=== PATIENT | male | born 2000 | race Caucasian/White ===

== ENCOUNTER 2023-09-09 13:39 | Emergency (ER) | payer OTHER, MEDICAID, SELFPAY ==
--- NOTE | ~2023-09-09 | XR_ITS ---
EXAMINATION: XR HAND, RIGHT CLINICAL INFORMATION: Right third finger pain COMPARISON: None available. TECHNIQUE: PA, lateral, and oblique views of the right hand. FINDINGS: No evidence for an acute fracture. There appears to be evidence of the sequela of an old fifth metacarpal fracture. No radiopaque foreign body. Joint spaces preserved. XR/XR hand RT min 3V IMPRESSION: No evidence for an acute third digit fracture.
[2023-09-09 13:56] VITALS: BP 123/79; PULSE 64; RESP 16; TEMP 36.6; O2SAT 100; BMI 21.2
--- NOTE | 2023-09-09 13:56 | ED_ITS ---
HPI - General Adult General Chief complaint: Extremity Problem Stated complaint: finger inj Time Seen by Provider: 09/09/23 14:08 Source: patient and family Mode of arrival: ambulatory Limitations: no limitations History of Present Illness ED Provider: VALENTINA Benitez HPI narrative: 22 yo m presents w/ right middle finger pain X 1 week sp jamming his fingger in car door. Pain worse w/ movement better at rest. Patient denies numbness, tingling, fevers, chills or previous injuries to this finger. Related Data Previous Rx's ?Medication ?Instructions ?Recorded ketorolac 10 mg tablet 10 mg PO TID PRN pain 5 days #15 09/09/23 tabs Allergies Allergy/AdvReac Type Severity Reaction Status Date / Time No Known Allergies Allergy Unverified 09/09/23 13:57 [No Known Allergies*] Review of Systems Review of Systems: Yes all other systems are reviewed and are negative [facility] Past Medical History Attestation statement: The following information was validated with the patient. Source: old records reviewed and nursing notes reviewed Social History Social History Advance Directives: No Advance Directives Information Provided: No Physical Exam ED Vital Signs: Vital Signs - 24 hr 09/09/23 13:56 09/09/23 15:04 Temperature 97.8 F 97.8 F Pulse Rate 64 64 Respiratory Rate 16 16 Blood Pressure 123/79 123/79 Pulse Oximetry 100 100 Oxygen Delivery Method Room Air Room Air BMI result Body Mass Index 21.2 vss Head: Normocephalic, atraumatic, no step-offs or deformities Neck: Normal inspection.? Neck supple.? CVS: Pulses normal.? Respiratory: No respiratory distress.? Abdomen: Soft and nontender.? Skin: ? Normal skin color. Extremities: 5/5 strength to bilateral upper and lower extremities Painful rom to right middle finger. 2+ radial and brachial pulses b/l. Cap refil < 2 seconds b/l. Normal sensation disally. Neuro: Oriented X 3.? No motor deficit.? No sensory deficit. Course Course Course Narrative: This is an RME done by VALENTINA Benitez: Additional HPI, ROS, PE not included below will be deferred to primary provider. 22 yo m presents w/ right middle finger pain X 1 week sp jamming his fingger in car door. Pain worse w/ movement better at rest. Patient denies numbness, tingling, fevers, chills or previous injuries to this finger. Appearance: Alert.? Oriented X3.? No acute cardiopulmonary distress distress.? Head: Normocephalic, atraumatic, no step-offs or deformities Neck: Normal inspection.? Neck supple.? CVS: Pulses normal.? Respiratory: No respiratory distress.? Abdomen: Soft and nontender.? Skin: ? Normal skin color. Extremities: 5/5 strength to bilateral upper and lower extremities Painful rom to right middle finger. 2+ radial and brachial pulses b/l. Cap refil < 2 seconds b/l. Normal sensation disally. Neuro: Oriented X 3.? No motor deficit.? No sensory deficit. Reevaluation(s) Reevaluation #1: XR/XR hand RT min 3V IMPRESSION: No evidence for an acute third digit fracture. No fx noted. plan dc home Time: 15:15 Medications Administered Discontinued Medications Generic Name Dose Route Start Last Admin Trade Name Freq PRN Reason Stop Dose Admin Ketorolac Tromethamine 30 mg 09/09/23 14:47 09/09/23 15:01 Ketorolac Tromethamine 30 Mg/Ml Vial IM 09/09/23 14:48 30 mg ONCE ONE Administration Medical Decision Making Medical Decision Making MDM Narrative: 1400 22 year old male presents w/ right middle finger pain X 1 week s/p jamming finger in car door PE - Painful rom to right middle finger. 2+ radial and brachial pulses b/l. Cap refil < 2 seconds b/l. Normal sensation distally. Hx and pe concerning for fracture of finger vs sprain vs strain vs dislocation vs contusion. No signs of NV compromise or threat to limb Plan imaging Differential Diagnosis Differential Diagnoses: The differential diagnosis associated with the presentation includes Hx and pe concerning for fracture of finger vs sprain vs strain vs dislocation vs contusion. No signs of NV compromise or threat to limb Independent Interpretation I performed an independent interpretation of an: Plain X-Ray Radiology Impression Discussion of test interpretation with radiology: I have reviewed the radiologist's reading. Prescription Management I considered prescription management with: Pain Medication Critical Care Time Critical Care Time Critical Care Time: No Discharge Plan Discharge Clinical Impression: Pain of right middle finger Patient Disposition: Home, Self-Care Instructions: Arthralgia (ED) Additional Instructions: Take your medications as prescribed. If you were prescribed antibiotics today, it is important that you take your medication to their entirety, do not skip any doses, do not finish them early. Follow-up with your primary care provider this week. Return to the emergency department with new or worsening symptoms. In case of emergency call 911 take your splint off at night. Follow up with the orthopedic team Toradol has been sent to your pharmacy, you tolerated this well in the department. Please take this as prescribed do not take this with ibuprofen, or other NSAIDs, do not mix this with alcohol. Side effects of this medication including increased risk for bleeding and possible kidney injury. Prescriptions: New ketorolac 10 mg tablet 10 mg PO TID PRN (Reason: pain) 5 Days Qty: 15 0RF Referrals: [facility] [place] [Provider Group] - 2 days Stand Alone Forms: Work/School Release Interventions: ED Discharge Assessment Last Done: 09/09/23 15:04 Discharge Date/Time: 09/09/23 15:05 Print Language: Namibian
[2023-09-09] MEDS: Ketorolac Tromethamine 30 MG/ML VIAL IM (15:01)
[2023-09-09 15:04] VITALS: BP 123/79; PULSE 64; RESP 16; TEMP 36.6; O2SAT 100
== END 2023-09-09 15:05 | disposition home or self-care (01) ==
PROVIDERS: Emergency Provider Emergency Medicine; PCP Pediatrics
DX: M79.644 Pain in right finger(s) (principal)
CPT/HCPCS: 73130; 96372; 99283; 99284; J1885

== ENCOUNTER 2023-09-11 15:37 | Emergency (ER) | payer OTHER, MEDICAID, SELFPAY ==
[2023-09-11 16:04] VITALS: BP 128/74; PULSE 67; RESP 18; TEMP 36.4; O2SAT 100; BMI 20.4
--- NOTE | 2023-09-11 16:18 | ED_ITS ---
HPI - General Adult General Chief complaint: General Medical Stated complaint: Finger pain/?Med reaction Time Seen by Provider: 09/11/23 16:10 Source: patient Mode of arrival: ambulatory Limitations: no limitations History of Present Illness ED Provider: Zulema GUSMAN HPI narrative: 22 yo m presents w/ right middle finger pain X 1 week sp jamming his fingger in car door was seen two days ago but since then developed pain, whiteness and swelling to region. Pain worse w/ movement better at rest. Patient denies numbness, tingling, fevers, chill Related Data Previous Rx's ?Medication ?Instructions ?Recorded ketorolac 10 mg tablet 10 mg PO TID PRN pain 5 days #15 09/09/23 tabs cephalexin 500 mg tablet 500 mg PO Q6H 10 days #40 tabs 09/11/23 doxycycline hyclate 100 mg capsule 100 mg PO BID 10 days #20 caps 09/11/23 morphine 15 mg immediate release 15 mg PO Q6H PRN pain 5 days #10 09/11/23 tablet tabs Allergies Allergy/AdvReac Type Severity Reaction Status Date / Time No Known Allergies Allergy Verified 09/11/23 16:08 [No Known Allergies*] Review of Systems Review of Systems: Yes all other systems are reviewed and are negative PMF[facility] Past Medical History Attestation statement: The following information was validated with the patient. Source: old records reviewed and nursing notes reviewed Social History Social History Advance Directives: No Advance Directives Information Provided: Yes Do you have a plan to hurt others: No Plan Physical Exam ED Vital Signs: Vital Signs - 24 hr 09/11/23 16:04 09/11/23 16:25 Temperature 97.5 F 97.5 F Pulse Rate 67 67 Respiratory Rate 18 18 Blood Pressure 128/74 128/74 Pulse Oximetry 100 100 Oxygen Delivery Method Room Air Room Air BMI result Body Mass Index 20.4 vss Appearance: Alert.? Oriented X3.? No acute cardiopulmonary distress distress.? Head: Normocephalic, atraumatic, no step-offs or deformities CVS: Pulses normal.? Respiratory: No respiratory distress.? Abdomen: Soft and nontender.? Skin: ? Normal skin color. Extremities: 5/5 strength to bilateral upper and lower extremities Painful rom to right middle finger. 2+ radial and brachial pulses b/l. Cap refil < 2 seconds b/l. Normal sensation distally. + paronychia now to the right middle finger Back: No midline tenderness, no C-spine tenderness, full range of motion, No CVA tenderness bilaterally Neuro: Oriented X 3.? No motor deficit.? No sensory deficit. Course Reevaluation(s) Reevaluation #1: Incision and drainage done with moderate amount of purulence expressed. Patient tolerated procedure well. Tetanus shot given. Oxycodone for pain. Patient to be discharged with morphine went over narcotic safe handling and proper use. Educated patient on diagnosis and treatment plan, answered all question, patient verbalizes understanding. At this time patient will be discharged home, advised to return with new or worsening symptoms. Educated on worrisome signs and symptoms and when to return. At this time I feel comfortable discharge home. Time: 16:36 Medications Administered Discontinued Medications Generic Name Dose Route Start Last Admin Trade Name Freq PRN Reason Stop Dose Admin Diphtheria/Tetanus/Acell Pertussis 0.5 ml 09/11/23 16:26 09/11/23 16:33 Diphth,Pertus(Acell),Tet Adult 0.5 Ml Syringe IM 09/11/23 16:27 0.5 ml .ONCE ONE Administration Oxycodone HCl 5 mg 09/11/23 16:27 09/11/23 16:33 Oxycodone Hcl Immed Release 5 Mg Tablet PO 09/11/23 16:28 5 mg ONCE ONE Administration Medical Decision Making Medical Decision Making [facility] Narrative: 22 year old male presents w/ right middle finger pain X 1 week s/p jamming finger in car door PE - Painful rom to right middle finger. 2+ radial and brachial pulses b/l. Cap refil < 2 seconds b/l. Normal sensation distally. + paronychia now to the right middle finger Hx and pe concerning for paronychia with cellulitis. Unlikely neurovascular compromise, threat to limb. Plan FNA / aspiration Differential Diagnosis Differential Diagnoses: The differential diagnosis associated with the pre sentation includes paronychia with cellulitis. Unlikely neurovascular compromise, threat to limb. Admission/Observation Consideration of admission/observation: Escalation of care including admission/observation considered no indication Discharge Plan Discharge Clinical Impression: Finger pain, Cellulitis, Paronychia of finger Patient Disposition: Home, Self-Care Additional Instructions: Take your medications as prescribed. If you were prescribed antibiotics today, it is important that you take your medication to their entirety, do not skip any doses, do not finish them early. Follow-up with your primary care provider this week. Return to the emergency department with new or worsening symptoms. Such as fevers, chills, chest pain, shortness of breath, nausea, vomiting, dizziness, headache, vision changes, lethargy In case of emergency call 911 A narcotic has been sent to your pharmacy please take this as prescribed. Do not take more than the prescribed dose. Narcotic medications can cause ad diction. Please do not mix them with alcohol. Do not take them while driving or operating machinery. Do not take them with any other narcotics. Do not share them with friends or family. They can cause constipation. Take them only for severe pain. Prescriptions: New doxycycline hyclate 100 mg capsule 100 mg PO BID 10 Days Qty: 20 0RF cephalexin 500 mg tablet 500 mg PO Q6H 10 Days Qty: 40 0RF morphine 15 mg tablet 15 mg PO Q6H PRN (Reason: pain) 5 Days Qty: 10 0RF Rx Instructions: Partial Fill upon patient request. No Action ketorolac 10 mg tablet 10 mg PO TID PRN (Reason: pain) 5 Days Qty: 15 0RF Referrals: Physician,None [Primary Care Provider] - 2 days Stand Alone Forms: Work/School Release Interventions: ED Discharge Assessment Last Done: 09/11/23 16:25 Print Language: Slovak
[2023-09-11 16:25] VITALS: BP 128/74; PULSE 67; RESP 18; TEMP 36.4; O2SAT 100
[2023-09-11] MEDS: oxyCODONE HCl Immed Release 5 MG TABLET PO (16:33)
[2023-09-11] MEDS: Diphth,Pertus(ACell),Tet Adult 0.5 ML SYRINGE IM (16:33)
== END 2023-09-11 16:38 | disposition home or self-care (01) ==
PROVIDERS: Emergency Provider Emergency Medicine
DX: L03.011 Cellulitis of right finger (principal); M79.644 Pain in right finger(s); S69.91XD Unspecified injury of right wrist, hand and finger(s), subsequent encounter; W23.0XXD Caught, crushed, jammed, or pinched between moving objects, subsequent encounter; Z23 Encounter for immunization
CPT/HCPCS: 10060; 90471; 90715; 99283; 99284

== ENCOUNTER 2024-04-11 17:14 | Emergency (ER) | payer OTHER, MEDICAID, SELFPAY ==
--- NOTE | ~2024-04-11 | XR_ITS ---
CLINICAL HISTORY: 4th digit injury, pain 3 view right hand Comparison: X-rays of the right hand from 09/09/2023 Findings: Distal 5th metacarpal fracture is old healed. No acute fracture. No dislocation. Mild soft tissue swelling and prominence is noted including 4th and 5th metacarpophalangeal regions. No radiopaque retained foreign body. IMPRESSION: 1. No acute fracture or dislocation. 2. Old healed 5th metacarpal fracture. This document has been electronically signed by: Ten King MD on 04/11/2024 18:56:39
[2024-04-11 17:57] VITALS: BP 99/64; PULSE 99; RESP 16; TEMP 36.7; O2SAT 99; BMI 20.7
--- NOTE | 2024-04-11 17:57 | ED_ITS ---
HPI - General Adult General Chief complaint: Extremity Injury, Upper Stated complaint: right fingers bent playing basketball Time Seen by Provider: 04/11/24 20:37 Source: patient Mode of arrival: ambulatory Limitations: no limitations History of Present Illness ED Provider: Yashira Edwards PA-C HPI narrative: Patient is a 23 year old assigned female at with no reported medical history presenting to the emergency department today with right hand pain. Patient states that 4 months ago he was playing basketball when his right 4th and 5th fingers were bent backwards and he has been having intermittent pain there ever since. Patient denies any dizziness, lightheadedness, abdominal pain, nausea, vomiting, fever, chills, blurry vision, double vision, loss of vision, chest pain, difficulty breathing, shortness of breath, back pain, night sweats, pain with urination, increased urinary frequency, increased urinary urgency, blood in his urine or stool, syncope or a near syncopal episode, bowel incontinence, bladder incontinence, or any other complaints at this time. Onset (ago): month(s) (4) Location: right and upper extremity Relieving factors: none Exacerbating factors: movement Associated symptoms: denies other symptoms Treatments prior to arrival: none Related Data Previous Rx's ?Medication ?Instructions ?Recorded ketorolac 10 mg tablet 10 mg PO TID PRN pain 5 days #15 09/09/23 tabs cephalexin 500 mg tablet 500 mg PO Q6H 10 days #40 tabs 09/11/23 doxycycline hyclate 100 mg capsule 100 mg PO BID 10 days #20 caps 09/11/23 morphine 15 mg immediate release 15 mg PO Q6H PRN pain 5 days #10 09/11/23 tablet tabs Allergies Allergy/AdvReac Type Severity Reaction Status Date / Time No Known Allergies Allergy Verified 04/11/24 17:58 [No Known Allergies*] Review of Systems Constitutional: Constitutional: Reports no additional constitutional complaints, Denies chills, Denies fever(s) and Denies night sweats Eyes: Eyes: Reports no additional eye complaints, Denies blurry vision, Denies change in vision, Denies diplopia, Denies eye discharge, Denies loss of vision and Denies eye pain ENT: Denies dizziness Cardiovascular: Cardiovascular: Reports no additional cardiovascular complaints, Denies chest pain, Denies lightheadedness, Denies Loss of Consciousness and Denies dyspnea Respiratory: Respiratory: Reports no additional respiratory complaints and Denies dyspnea Gastrointestinal: Gastrointestinal: Reports no additional gastrointestinal complaints, Denies abdominal pain, Denies melena, Denies hematochezia, Denies change in bowel habits and Denies change in stool character Genitourinary: Genitourinary: Reports no additional male genitourinary complaints, Denies hematuria, Denies oliguria, Denies difficulty urinating, Denies dysuria, Denies urinary frequency, Denies urinary hesitancy, Denies urinary incontinence and Denies urinary urgency Musculoskeletal: Musculoskeletal: Reports no additional musculoskeletal complaints, Denies numbness and Denies tingling Comments: right 4th and 5th finger pain Neurologic: Denies dizziness, Denies loss of vision, Denies numbness and Denies tingling Psychiatric: Psychiatric: Reports no additional psychiatric complaints Endocrine: Endocrine: Reports no additional endocrine complaints Hematologic/Lymphatic: Hematologic/Lymphatic: Reports no additional hematologic/lymphatic complaints Allergic/Immunologic: Allergic/Immunologic: Reports no additional allergic/immunologic complaints PMFSH Past Medical History Attestation statement: The following information was validated with the patient. Source: old records reviewed and nursing notes reviewed Social History Social History Advance Directives: No Advance Directives Information Provided: No Do you have a plan to hurt others: No Plan Physical Exam ED Vital Signs: Vital Signs - 24 hr 04/11/24 17:57 04/11/24 20:39 04/11/24 20:44 Temperature 98.1 F 98.0 F 98.0 F Pulse Rate 99 78 78 Respiratory Rate 16 16 16 Blood Pressure 99/64 105/69 105/69 Pulse Oximetry 99 97 97 Oxygen Delivery Method Room Air Room Air Room Air BMI result Body Mass Index 20.7 Const General: cooperative, no acute distress, alert and awake Nutritional Appearance: well nourished Orientation/consciousness: patient oriented x3 Limitations: no limitations HENMT Head: Yes normal to inspection and Yes atraumatic Ears: hearing grossly normal bilaterally and external ears normal General nose exam: Normal external nose present, no nasal discharge noted and no epistaxis Face and sinus: Yes normal facial exam, No abrasion and No laceration Mouth: Normal oral and palatal mucosa present, no drooling and no muffled voice Eyes General: appearance normal, both eyes and all related structures Periorbital: periorbital findings normal Eyelids: Yes eyelids normal Conjunctivae: conjunctivae normal Pupils: Equal, round and reactive pupils present EOM: EOMs intact bilaterally Neck Neck: Yes normal visual inspection, Yes full ROM and Yes no lymphadenopathy Chest Chest palpation & inspection: normal inspection of the chest Resp Effort & Inspection: normal respiratory effort and able to speak in complete sentences GI Inspection: Yes normal to inspection Neuro General: patient oriented x3 and moves all extremities Cranial nerves: Yes Equal, round and reactive pupils present Cognition (Neuro): normal cognition Extrem General: Yes normal to inspection, Yes full ROM and Yes capillary refill normal Psych Appearance: grossly normal Mental Status: mental status grossly normal Affect: normal affect Attitude: cooperative Thought process: Normal thought process present Thought content: Normal thought content present Insight: Good insight present (Psych) Course Course Course Narrative: RME performed by Yashira Edwards PA-C. Patient is a 23 year old assigned male at presenting to the emergency department with right 4th finger pain. Patient states 4 months ago he was playing basketball, got a rebound, and bent his right 4th finger back but it continues to hurt when he moves it. Detailed physical exam and review of systems are deferred to the sort line worker. Imaging ordered. Patient placed back in the waiting room pending room availability and results. Medical Decision Making Medical Decision Making MDM Narrative: Patient is a 23 year old assigned male at with no reported medical history presenting to the emergency department today with right hand pain for 4 months. Patient's physical exam was unremarkable. Patient's right hand x-ray showed no acute process but did show an old, healed, 5th metacarpal fracture which may be the root of the patients pain. I explained my physical exam findings as well as all test results to the patient. I answered all questions asked by the patient. I stressed the importance of the patient taking his medication as directed (either prescribed or as the over the counter packaging recommends). I stressed the importance of the patient following up with his primary care provider. I stressed the importance of the patient returning to the emergency department immediately if his symptoms were to worsen or if he were to develop any dizziness, shortness of breath, difficulty breathing, chest pain, blurry vision, loss of vision, nausea, vomiting, abdominal pain, fever, chills, back pain, or any other complaints. Patient verbalized agreement and understanding with this treatment plan and discharge. Differential Diagnosis Differential Diagnoses: The differential diagnosis associated with the presentation includes Right hand pain Right 4th finger injury Right 5th finger injury Right 5gh metacarpal injury Admission/Observation Consideration of admission/observation: Escalation of care including admission/observation considered Patient would have been admitted to the hospital had his work up had any findings where hospital admission was appropriate and his clinical presentation warranted hospital admission. Independent Interpretation I performed an independent interpretation of an: Plain X-Ray Interpretation: My interpretation is in agreement with the radiologist's impression of this imaging study. CLINICAL HISTORY: 4th digit injury, pain 3 view right hand Comparison: X-rays of the right hand from 09/09/2023 Findings: Distal 5th metacarpal fracture is old healed. No acute fracture. No dislocation. Mild soft tissue swelling and prominence is noted including 4th and 5th metacarpophalangeal regions. No radiopaque retained foreign body. IMPRESSION: 1. No acute fracture or dislocation. 2. Old healed 5th metacarpal fracture. This document has been electronically signed by: Ten King MD on 04/11/2024 18:56:39 Dictated By: Ten King MD Signed By: Electronically signed by Ten King MD 04/11/24 9160 Radiology Impression Discussion of test interpretation with radiology: I have reviewed the radiologist's reading. Discharge Plan Discharge Clinical Impression: Hand pain Patient Disposition: Home, Self-Care Additional Instructions: Your hand x-ray showed an old, already healed, right 5th metacarpal fracture. Follow up with your primary care provider. Return to the emergency department immediately if your symptoms worsen or if you develop any dizziness, shortness of breath, difficulty breathing, chest pain, blurry vision, loss of vision, nausea, vomiting, abdominal pain, fever, chills, back pain, or any other complaints. Prescriptions: No Action ketorolac 10 mg tablet 10 mg PO TID PRN (Reason: pain) 5 Days Qty: 15 0RF doxycycline hyclate 100 mg capsule 100 mg PO BID 10 Days Qty: 20 0RF cephalexin 500 mg tablet 500 mg PO Q6H 10 Days Qty: 40 0RF morphine 15 mg tablet 15 mg PO Q6H PRN (Reason: pain) 5 Days Qty: 10 0RF Rx Instructions: Partial Fill upon patient request. Referrals: [facility] [place] Family [place] [Provider Group] (Call to establish and follow up with a primary care provider. IF you already have a primary care provider, please follow up with them.) [facility] [place] Primary Care, [facility] [Provider Group] (Call to establish and follow up with a primary care provider. IF you already have a primary care provider, please follow up with them.) [facility] [place] [facility] [Provider Group] (Call to establish and follow up with a primary care provider. IF you already have a primary care provider, please follow up with them.) Interventions: ED Discharge Assessment Last Done: 04/11/24 20:44 Discharge Date/Time: 04/11/24 20:48 Print Language: Tajik
[2024-04-11 20:39] VITALS: BP 105/69; PULSE 78; RESP 16; TEMP 36.7; O2SAT 97
[2024-04-11 20:44] VITALS: BP 105/69; PULSE 78; RESP 16; TEMP 36.7; O2SAT 97
== END 2024-04-11 20:48 | disposition home or self-care (01) ==
LOC: HO.ED 20:45
PROVIDERS: Emergency Provider Emergency Medicine Emergency Medical Services
DX: M79.641 Pain in right hand (principal)
CPT/HCPCS: 73130; 99282; 99283

== ENCOUNTER → 2024-04-11 17:59 | Outpatient (BNV) | payer OTHER, MEDICAID, SELFPAY | PROVIDERS: Visit Provider Radiology Neuroradiology | DX: S63.614A Unspecified sprain of right ring finger, initial encounter (principal) | CPT/HCPCS: 73130 ==

== ENCOUNTER 2024-07-25 19:35 | Emergency (ER) | payer OTHER, SELFPAY ==
--- NOTE | ~2024-07-25 | XR_ITS ---
CLINICAL HISTORY: pain, injury 3 view right ankle Comparison: None Findings: Bones intact. No dislocations. No significant loss of joint space, osteophytes, or erosions. No ankle effusion. Soft tissue edema of the ankle. No radiopaque foreign body. IMPRESSION: No acute fracture. This document has been electronically signed by: Jeff Segundo MD on 07/25/2024 21:03:00
--- NOTE | ~2024-07-25 | XR_ITS ---
CLINICAL HISTORY: pain, injury 3 view right foot Comparison: None Findings: Bones intact. No dislocations. No significant arthritic change or erosions. No ankle effusion. No radiopaque foreign body. IMPRESSION: 1. No acute findings. This document has been electronically signed by: Jfef Segundo MD on 07/25/2024 21:05:01
[2024-07-25 20:04] VITALS: BP 108/69; PULSE 79; RESP 20; TEMP 36.4; O2SAT 99; BMI 20.7
--- NOTE | 2024-07-25 20:07 | ED_ITS ---
HPI - General Adult General Chief complaint: Extremity Problem Stated complaint: R ankle pain Time Seen by Provider: 07/25/24 21:14 Source: patient Mode of arrival: wheelchair Limitations: no limitations History of Present Illness ED Provider: Yashira Edwards PA-C HPI narrative: Patient is a 23 year old assigned male at with a history of ankle sprains presenting to the emergency department today with right ankle pain. Patient states that he was playing basketball when he rolled his right ankle. Patient denies any dizziness, lightheadedness, abdominal pain, nausea, vomiting, fever, chills, blurry vision, double vision, loss of vision, chest pain, difficulty breathing, shortness of breath, back pain, night sweats, pain with urination, increased urinary frequency, increased urinary urgency, blood in his urine or stool, syncope or a near syncopal episode, bowel incontinence, bladder incontinence, or any other complaints at this time. Location: right and lower extremity Relieving factors: immobilization Exacerbating factors: movement Associated symptoms: denies other symptoms Treatments prior to arrival: none Related Data Previous Rx's ?Medication ?Instructions ?Recorded ketorolac 10 mg tablet 10 mg PO TID PRN pain 5 days #15 09/09/23 tabs cephalexin 500 mg tablet 500 mg PO Q6H 10 days #40 tabs 09/11/23 doxycycline hyclate 100 mg capsule 100 mg PO BID 10 days #20 caps 09/11/23 morphine 15 mg immediate release 15 mg PO Q6H PRN pain 5 days #10 09/11/23 tablet tabs Allergies Allergy/AdvReac Type Severity Reaction Status Date / Time No Known Allergies Allergy Verified 07/25/24 20:05 [No Known Allergies*] Review of Systems Constitutional: Constitutional: Reports no additional constitutional complaints, Denies chills, Denies fever(s) and Denies night sweats Eyes: Eyes: Reports no additional eye complaints, Denies blurry vision, Denies change in vision, Denies diplopia, Denies eye discharge, Denies loss of vision and Denies eye pain ENT: Denies dizziness Cardiovascular: Cardiovascular: Reports no additional cardiovascular complaints, Denies chest pain, Denies lightheadedness, Denies Loss of Consciousness and Denies dyspnea Respiratory: Respiratory: Reports no additional respiratory complaints and Denies dyspnea Gastrointestinal: Gastrointestinal: Reports no additional gastrointestinal complaints, Denies abdominal pain, Denies melena, Denies hematochezia, Denies change in bowel habits and Denies change in stool character Genitourinary: Genitourinary: Reports no additional male genitourinary complaints, Denies hematuria, Denies oliguria, Denies difficulty urinating, Denies dysuria, Denies urinary frequency, Denies urinary hesitancy, Denies urinary incontinence and Denies urinary urgency Musculoskeletal: Musculoskeletal: Reports no additional musculoskeletal complaints, Denies numbness and Denies tingling Comments: right ankle pain Neurologic: Denies dizziness, Denies loss of vision, Denies numbness and Denies tingling Psychiatric: Psychiatric: Reports no additional psychiatric complaints Endocrine: Endocrine: Reports no additional endocrine complaints Hematologic/Lymphatic: Hematologic/Lymphatic: Reports no additional hematologic/lymphatic complaints Allergic/Immunologic: Allergic/Immunologic: Reports no additional allergic/immunologic complaints PMFSH Past Medical History Attestation statement: The following information was validated with the patient. Source: old records reviewed and nursing notes reviewed Physical Exam ED Vital Signs: Vital Signs - 24 hr 07/25/24 20:04 Temperature 97.6 F Pulse Rate 79 Respiratory Rate 20 Blood Pressure 108/69 Pulse Oximetry 99 Oxygen Delivery Method Room Air BMI result Body Mass Index 20.7 Const General: cooperative, no acute distress, alert and awake Nutritional Appearance: well nourished Orientation/consciousness: patient oriented x3 HENMT Head: Yes normal to inspection and Yes atraumatic Ears: hearing grossly normal bilaterally and external ears normal General nose exam: Normal external nose present, no nasal discharge noted and no epistaxis Face and sinus: Yes normal facial exam, No abrasion and No laceration Mouth: Normal oral and palatal mucosa present, no drooling and no muffled voice Eyes General: appearance normal, both eyes and all related structures Periorbital: periorbital findings normal Eyelids: Yes eyelids normal Conjunctivae: conjunctivae normal Pupils: Equal, round and reactive pupils present EOM: EOMs intact bilaterally Neck Neck: Yes normal visual inspection, Yes full ROM and Yes no lymphadenopathy Resp Effort & Inspection: normal respiratory effort and able to speak in complete sentences Neuro General: patient oriented x3, moves all extremities and CN's II-XI intact bilaterally Cranial nerves: Yes Equal, round and reactive pupils present Cognition (Neuro): normal cognition Extrem Other: pain with right ankle ROM pain with palpation of the right ankle swelling along the lateral aspect of the right ankle General: Yes full ROM and Yes capillary refill normal Psych Appearance: grossly normal Mental Status: mental status grossly normal Affect: normal affect Attitude: cooperative Thought process: Normal thought process present Thought content: Normal thought content present Insight: Good insight present (Psych) Course Course Course Narrative: RME performed by Yashira Edwards PA-C. Patient is a 23 year old assigned male at presenting to the emergency department with right ankle pain. Patient states that he rolled his right ankle playing basketball. Detailed physical exam and review of systems are deferred to the laminate floor installer. Imaging ordered. Patient placed back in the waiting room pending room availability and results. Procedures Orthopedic Splinting/Casting Injury #1: Side: right Lower Extremity Injury Location: ankle Lower Extremity Immobilizer: boot orthosis Other Orthopedic Equipment: crutches Medical Decision Making Medical Decision Making MDM Narrative: Patient is a 23 year old assigned male at with a history of ankle sprains presenting to the emergency department today with right ankle pain. Patient's physical exam was as noted in the physical exam portion of this note. Patient's right foot and ankle x-ray showed no acute process. Patient's clinical presentation is most consistent with an ankle sprain / strain. I explained my physical exam findings as well as all test results to the patient. I answered all questions asked by the patient. Patient's right foot / ankle was placed in a walking boot, without incident. Patient's right foot / lower extremity PMS was intact prior to and after walking boot placement. Patient was given crutches with crutch instructions and was able to demonstrate proper use. I stressed the importance of the patient taking his medication as directed (either prescribed or as the over the counter packaging recommends). I stressed the importance of the patient following up with his primary care provider. I stressed the importance of the patient returning to the emergency department immediately if his symptoms were to worsen or if he were to develop any dizziness, shortness of breath, difficulty breathing, chest pain, blurry vision, loss of vision, nausea, vomiting, abdominal pain, fever, chills, back pain, or any other complaints. Patient verbalized agreement and understanding with this treatment plan and discharge. Differential Diagnosis Differential Diagnoses: The differential diagnosis associated with the presentation includes Right ankle sprain Right ankle strain Right ankle fx Admission/Observation Consideration of admission/observation: Escalation of care including admission/observation considered Patient would have been admitted to the hospital had his work up had any findings where hospital admission was appropriate and his clinical presentation warranted hospital admission. Independent Interpretation I performed an independent interpretation of an: Plain X-Ray Interpretation: My interpretation is in agreement with the radiologist's impression of these imaging studies. CLINICAL HISTORY: pain, injury 3 view right ankle Comparison: None Findings: Bones intact. No dislocations. No significant loss of joint space, osteophytes, or erosions. No ankle effusion. Soft tissue edema of the ankle. No radiopaque foreign body. IMPRESSION: No acute fracture. This document has been electronically signed by: Jeff Segundo MD on 07/25/2024 21:03:00 Dictated By: Jeff Segundo MD Signed By: Electronically signed by Jeff Segundo MD 07/25/[id number] CLINICAL HISTORY: pain, injury 3 view right foot Comparison: None Findings: Bones intact. No dislocations. No significant arthritic change or erosions. No ankle effusion. No radiopaque foreign body. IMPRESSION: 1. No acute findings. This document has been electronically signed by: Jeff Segundo MD on 07/25/2024 21:05:01 Dictated By: Jeff Segundo MD Signed By: Electronically signed by Jeff Segundo MD 07/25/242105 Radiology Impression Discussion of test interpretation with radiology: I have reviewed the radiologist's reading. Discharge Plan Discharge Clinical Impression: Ankle sprain Patient Disposition: Home, Self-Care Instructions: Ankle Sprain (DC) Additional Instructions: Follow up with your primary care provider. Return to the emergency department immediately if your symptoms worsen or if you develop any dizziness, shortness of breath, difficulty breathing, chest pain, blurry vision, loss of vision, nausea, vomiting, abdominal pain, fever, chills, back pain, or any other complaints. Hari?seguimiento?con ortiz m?dico de atenci?n primaria. Acuda inmediatamente al servicio de urgencias si maryjo s?ntomas empeoran o si presenta falta de aliento, dificultad para respirar, dolor tor?cico, mareos, aturdimiento, dolor de espalda, dolor abdominal, fiebre, escalofr?os o cualquier otro s?ntoma. Please see the information below about our Patient Portal. If you are not yet enrolled in the [facility] Patient Portal, you will receive an enrollment email invitation following your visit to any [facility] care setting. You may also self-enroll in the Patient Portal by visiting our website: [email or web address] The following information is required to access the Patient Portal: - Your [facility] Medical Record Number - Your personal home email address (must match what is in your electronic medical record, Registration staff can assist with this) - Name - Date of Capabilities of the Patient Portal: - Message some providers - View upcoming appointments - Access your health summary, medical history, and visit history - View current conditions and allergies - View procedure and lab results - View your medications, including guidelines, side effects, and precautions - Complete pre-appointment questionnaires requested by your provider - Ready summary reports of your office visits and procedures To access the Patient Portal Mobile Art, follow these directions: - Search [employer] in the Art Store or [employer] Store - Download the Art - Search for [facility] - Enter your login/password Portal del paciente Si usted no esta inscrito en el portal de pacientes de [facility], recibira constantine invitacion de inscripcion despues de ortiz visita al [facility] o al [facility] via correo electronico. Tambien puede inscribirse voluntariamente en el portal de pacientes visitando nuestra pagina web: [email or web address] La siguiente informacion sera requerida para acceder al portal: - Ortiz prema de historia medica de [facility] - Ortiz direccion de correo electronico personal - Nombre - Fecha de nacimiento Capacidades: Las siguientes capacidades estan disponibles en el portal de pacientes: - Enviar mensajes a algunos doctores - Verificar proximas citas - Acceso a ortiz historial de maico, registro medico e historial de visitas - Francie las condiciones actuales y alergias francie procedimientos y resultados del laboratorio - Francie maryjo medicamentos, incluyendo las pautas - Efectos secundarios y precauciones - Completar o llenar formularios / cuestionarios de - Citas solicitadas por ortiz doctor - Leer los resumenes de reportes medicos de maryjo visitas y procedimientos Helen acceder a la aplicacion movil: - Ayaan [facility] en la Art Store o [employer] Software Store - Descargue la aplicacion - [facility] - Ingrese ortiz nombre de usuario / Contrasena Prescriptions: No Action ketorolac 10 mg tablet 10 mg PO TID PRN (Reason: pain) 5 Days Qty: 15 0RF doxycycline hyclate 100 mg capsule 100 mg PO BID 10 Days Qty: 20 0RF cephalexin 500 mg tablet 500 mg PO Q6H 10 Days Qty: 40 0RF morphine 15 mg tablet 15 mg PO Q6H PRN (Reason: pain) 5 Days Qty: 10 0RF Rx Instructions: Partial Fill upon patient request. Referrals: [facility] Family Medicine [Provider Group] (Call to establish and follow up with your primary care provider. If you already have a primary care provider, please follow up with them. Llame para establecer y hacer un seguimiento con ortiz proveedor de atenci?n primaria. Si ya tiene un proveedor de atenci?n primaria, p?ngase en contacto con ?l.) [facility] Primary Care, [facility] [Provider Group] (Call to establish and follow up with your primary care provider. If you already have a primary care provider, please follow up with them. Llame para establecer y hacer un seguimiento con ortiz proveedor de atenci?n primaria. Si ya tiene un proveedor de atenci?n primaria, p?ngase en contacto con ?l.) [facility] Primary Care, Ja [Provider Group] (Call to establish and follow up with your primary care provider. If you already have a primary care provider, please follow up with them. Llame para establecer y hacer un seguimiento con ortiz proveedor de atenci?n primaria. Si ya tiene un proveedor de atenci?n primaria, p?ngase en contacto con ?l.) [facility] Primary Care, [facility] [Provider Group] (Call to establish and follow up with your primary care provider. If you already have a primary care provider, please follow up with them. Llame para establecer y hacer un seguimiento con ortiz proveedor de atenci?n primaria. Si ya tiene un proveedor de atenci?n primaria, p?ngase en contacto con ?l.) [facility] Primary Care, [facility] [Provider Group] (Call to establish and follow up with your primary care provider. If you already have a primary care provider, please follow up with them. Llame para establecer y hacer un seguimiento con ortiz proveedor de atenci?n primaria. Si ya tiene un proveedor de atenci?n primaria, p?ngase en contacto con ?l.) Stand Alone Forms: Work/School Release Print Language: Tajik
[2024-07-25 21:21] VITALS: BP 108/69; PULSE 79; RESP 20; TEMP 36.4; O2SAT 99
== END 2024-07-25 21:29 | disposition home or self-care (01) ==
LOC: HO.ED 21:24
PROVIDERS: Emergency Provider Emergency Medicine
DX: S93.401A Sprain of unspecified ligament of right ankle, initial encounter (principal); X50.1XXA Overexertion from prolonged static or awkward postures, initial encounter; M25.571 Pain in right ankle and joints of right foot; Y93.67 Activity, basketball; Y92.310 Basketball court as the place of occurrence of the external cause; Y99.9 Unspecified external cause status
CPT/HCPCS: 73610; 73630; 99283

== ENCOUNTER → 2024-07-25 20:07 | Outpatient (BNV) | payer OTHER, SELFPAY | PROVIDERS: Emergency Provider Emergency Medicine; Visit Provider Nuclear Medicine | DX: M25.571 Pain in right ankle and joints of right foot (principal) | CPT/HCPCS: 73610; 73630 ==

== ENCOUNTER 2024-08-08 05:36 | Emergency (ER) | payer MEDICAID, SELFPAY ==
[2024-08-08 05:40] VITALS: BP 127/77; PULSE 58; RESP 20; TEMP 36.7; O2SAT 98; BMI 20.7
--- NOTE | 2024-08-08 05:46 | ED_ITS ---
HPI - Dental/Oral General Chief complaint: Dental/Oral Stated complaint: tooth pain Time Seen by Provider: 08/08/24 05:46 Source: patient Mode of arrival: ambulatory Limitations: no limitations History of Present Illness ED Provider: HPI Narrative: Patient with dental cavities had feeling done last week in advised for left 3rd molar to be extracted comes here for increasing pain in the same molar patient has been taking tramadol without much relief Related Data Previous Rx's ?Medication ?Instructions ?Recorded ketorolac 10 mg tablet 10 mg PO TID PRN pain 5 days #15 09/09/23 tabs cephalexin 500 mg tablet 500 mg PO Q6H 10 days #40 tabs 09/11/23 doxycycline hyclate 100 mg capsule 100 mg PO BID 10 days #20 caps 09/11/23 morphine 15 mg immediate release 15 mg PO Q6H PRN pain 5 days #10 09/11/23 tablet tabs amoxicillin 875 mg-potassium 1 tab PO BID #20 tabs 08/08/24 clavulanate 125 mg tablet oxycodone 5 mg tablet 5 mg PO Q6H PRN pain #10 tabs 08/08/24 Allergies Allergy/AdvReac Type Severity Reaction Status Date / Time No Known Allergies Allergy Verified 08/08/24 05:42 [No Known Allergies*] Review of Systems 2 Review of Systems: Yes all other systems are reviewed and are negative PMFSH Social History Social History Advance Directives: No Advance Directives Information Provided: No Physical Exam 2 Vital Signs: Vital Signs: Last Vital Signs Temp 98.1 F 08/08/24 06:06 Pulse 58 08/08/24 06:06 Resp 20 08/08/24 06:06 BP 127/77 08/08/24 06:06 Pulse Ox 98 08/08/24 06:06 O2 Del Method Room Air 08/08/24 06:06 BMI result Body Mass Index 20.7 HEENT: Teeth image: 1. Broken impacted tooth with gum tenderness no abscess palpable Medications Administered Discontinued Medications Generic Name Dose Route Start Last Admin Trade Name Freq PRN Reason Stop Dose Admin Amoxicillin/Clavulanate Potassium 875 mg 08/08/24 05:55 08/08/24 06:00 Amoxicillin/Potassium Clav 875 Mg Tablet PO 08/08/24 05:56 875 mg ONCE ONE Administration Oxycodone HCl 5 mg 08/08/24 05:55 08/08/24 06:00 Oxycodone Hcl Immed Release 5 Mg Tablet PO 08/08/24 05:56 5 mg ONCE ONE Administration Medical Decision Making Medical Decision Making [facility] Narrative: Patient with impacted tooth 17. With cavity will give Augmentin and pain medication advised to follow up with dentist for extraction Discharge Plan Discharge Clinical Impression: Dental caries Patient Disposition: Home, Self-Care Instructions: Toothache (ED) Additional Instructions: Take antibiotics and pain medication as prescribed Follow up with your dentist for further management Prescriptions: New amoxicillin-pot clavulanate 875-125 mg tablet 1 tab PO BID Qty: 20 0RF oxycodone 5 mg tablet 5 mg PO Q6H PRN (Reason: pain) Qty: 10 0RF Rx Instructions: Partial Fill upon patient request. No Action ketorolac 10 mg tablet 10 mg PO TID PRN (Reason: pain) 5 Days Qty: 15 0RF doxycycline hyclate 100 mg capsule 100 mg PO BID 10 Days Qty: 20 0RF cephalexin 500 mg tablet 500 mg PO Q6H 10 Days Qty: 40 0RF morphine 15 mg tablet 15 mg PO Q6H PRN (Reason: pain) 5 Days Qty: 10 0RF Rx Instructions: Partial Fill upon patient request. Stand Alone Forms: Work/School Release Interventions: ED Discharge Assessment Last Done: 08/08/24 06:06 Discharge Date/Time: 08/08/24 06:06 Print Language: Maori
[2024-08-08 05:47] VITALS: BP 127/77; PULSE 58; RESP 20; TEMP 36.7; O2SAT 98
[2024-08-08] MEDS: oxyCODONE HCl Immed Release 5 MG TABLET PO (06:00)
[2024-08-08] MEDS: Amoxicillin/Potassium Clav 875 MG TABLET PO (06:00)
[2024-08-08 06:06] VITALS: BP 127/77; PULSE 58; RESP 20; TEMP 36.7; O2SAT 98
== END 2024-08-08 06:06 | disposition home or self-care (01) ==
PROVIDERS: Emergency Provider Internal Medicine
DX: K02.9 Dental caries, unspecified (principal)
CPT/HCPCS: 99283; 99284

== ENCOUNTER 2024-08-23 07:43 | Emergency (ER) | payer MEDICAID, SELFPAY ==
[2024-08-23 07:50] VITALS: BP 121/71; PULSE 59; RESP 14; TEMP 36.5; O2SAT 98; BMI 20.2
[2024-08-23 08:00] VITALS: BP 121/71; PULSE 59; RESP 14; TEMP 36.5; O2SAT 98
--- NOTE | 2024-08-23 08:05 | PC.NURSE ---
Patient A&O x 3. Takes pills whole. Ambulates independently w/o assistive device. Patient presents to ED c/o left sided facial pain. Pain has been present for approx 2 weeks. Patient was recently seen by dentist, xrays showed patients left wisdom tooth is hitting a nerve and causing pain on left side of face. Patient states I have been unable to sleep due to the pain . OTC medications not effective. Patient has surgery date for 09/01. Denies fever/chills. Denies injury. Mouth inspected, no infectious process noted in mouth. No facial swelling noted. Call nugent in reach. Plan of care on going.
--- NOTE | 2024-08-23 08:15 | ED.GENADULT ---
HPI - General Adult General Chief complaint: General Medical Stated complaint: [place] teeth pain, Infected? Time Seen by Provider: 08/23/24 07:59 Source: patient, RN notes reviewed and old records reviewed Mode of arrival: ambulatory Limitations: no limitations History of Present Illness ED Provider: Pearl HPI narrative: Patient is a 23-year-old male presenting to the ED with complaint of pain to tooth #17. States he recently had fillings done on tooth #18, but then began to have pain to tooth #17. He returned to the dentist and had x-rays done. He is scheduled for removal of all wisdom teeth on 09/01 but complains of severe pain to left lower jaw. Denies any difficulty swallowing, opening or closing mouth, fever, or shortness of breath. complaint: dental pain Onset (ago): day(s) Related Data Previous Rx's ?Medication ?Instructions ?Recorded ketorolac 10 mg tablet 10 mg PO TID PRN pain 5 days #15 09/09/23 tabs cephalexin 500 mg tablet 500 mg PO Q6H 10 days #40 tabs 09/11/23 doxycycline hyclate 100 mg capsule 100 mg PO BID 10 days #20 caps 09/11/23 morphine 15 mg immediate release 15 mg PO Q6H PRN pain 5 days #10 09/11/23 tablet tabs amoxicillin 875 mg-potassium 1 tab PO BID #20 tabs 08/08/24 clavulanate 125 mg tablet oxycodone 5 mg tablet 5 mg PO Q6H PRN pain #10 tabs 08/08/24 chlorhexidine gluconate 0.12 % 15 ml buccal BID #1,893 mL 08/23/24 mouthwash morphine 15 mg immediate release 15 mg PO Q8H PRN severe pain 08/23/24 tablet (scale score 7-10) #9 tabs Allergies Allergy/AdvReac Type Severity Reaction Status Date / Time No Known Allergies Allergy Verified 08/23/24 07:52 [No Known Allergies*] Review of Systems Review of Systems: As per HPI Yes all other systems are reviewed and are negative Constitutional: Constitutional: Reports as per HPI PMFSH Social History Social History Alcohol intake: current Alcohol intake frequency: holidays/special occasions only Smoked in Last 30 Days: No Use of substances other than those prescribed or required for medical reasons: Yes Substance Use Type: Marijuana Substance Use Frequency: Occasionally Advance Directives: No Advance Directives Information Provided: Yes Do you have a plan to hurt others: No Plan Physical Exam ED Vital Signs: Vital Signs - 24 hr 08/23/24 07:50 08/23/24 08:00 Temperature 97.7 F 97.7 F Pulse Rate 59 59 Respiratory Rate 14 14 Blood Pressure 121/71 121/71 Pulse Oximetry 98 98 Oxygen Delivery Method Room Air Room Air BMI result Body Mass Index 20.2 Vital signs have been reviewed and appear to be correct. Blood pressure normal. Heart rate normal. Respiratory rate normal. Temperature normal. Oxygen saturation normal. Const General: cooperative, healthy appearing and no acute distress Orientation/consciousness: oriented to person, oriented to place, oriented to time and patient oriented x3 Limitations: no limitations HENMT Head: Yes normocephalic and Yes atraumatic Ears: external ears normal General nose exam: Normal external nose present Face and sinus: Yes face symmetric Mouth: Normal oral and palatal mucosa present, oropharynx normal, moist mucous membranes, no audible dysphonia, no drooling and no trismus Teeth image: 1. Fractured tooth with caries, no gingival erythema, fluctuance or drainage Throat: Yes uvula midline Eyes Pupils: Equal, round and reactive pupils present Neck Neck: Yes normal visual inspection and Yes supple Lymphatic: no lymphadenopathy noted Resp Effort & Inspection: normal respiratory effort and able to speak in complete sentences Auscultation: clear to auscultation bilaterally Cardio Rate: regular rate Rhythm: regular rhythm Heart sounds: S1 normal heart sound present and S2 normal heart sound present GI Palpation (GI): Soft to palpation and nontender Auscultation: normoactive bowel sounds General: Yes no CVA tenderness Back/Spine/Pelvis Back: no CVA tenderness Skin General skin exam: elasticity normal and turgor normal Neuro General: oriented to person, oriented to place, oriented to time, patient oriented x3, moves all extremities, no focal motor deficits and CN's II-XI intact bilaterally Cranial nerves: Yes Equal, round and reactive pupils present Cognition (Neuro): normal cognition Extrem General: Yes full ROM, Yes no pedal edema and Yes no calf tenderness Psych Mental Status: mental status grossly normal Affect: normal affect Thought process: Normal thought process present Medical Decision Making Medical Decision Making [facility] Narrative: Patient is a 23-year-old male presenting to the ED with complaint of pain to tooth #17. On exam patient is awake, A+Ox3, VS WNL, afebrile, normal neurological exam without focal deficits, physical exam findings as above. Given reported symptoms and physical exam findings, initial differential includes but is not limited to dental caries, toothache, dental abscess, dental infection. No evidence of acute infection on exam, however, caries present. Will send prescription for a few morphine, advised patient to alternate Tylenol and ibuprofen. Will also send prescription for chlorhexidine mouthwash. Instructed patient to follow-up with dentist as planned. Return precautions discussed at bedside. Patient verbalized understanding of and agreement with plan. Differential Diagnosis Differential Diagnoses: The differential diagnosis associated with the presentation includes As per [facility] Admission/Observation Consideration of admission/observation: Escalation of care including admission/observation considered Patient would have been admitted to the hospital had their work up had any findings where hospital admission was appropriate and their clinical presentation warranted hospital admission. External Record Review External record reviewed: Inpatient record, Office record and Outpatient record Prescription Management I considered prescription management with: Pain Medication and Antibiotic Discharge Plan Discharge Clinical Impression: Pain, dental Patient Disposition: Home, Self-Care Instructions: Toothache (ED) Additional Instructions: You were evaluated in the emergency department today for complaint of dental pain. IT IS IMPORTANT THAT YOU FOLLOW UP WITH YOUR DENTIST. We recommend that you take 600 mg of ibuprofen or 650 mg Tylenol every 6 hours as needed for pain. If necessary, you can alternate these medications every 3 hours. For example, at 9:00 a.m. take Tylenol, then at noon take ibuprofen, then at 3:00 p.m. take Tylenol, etc.. You are being prescribed a short course of morphine for severe pain. Do not take this medication with alcohol. You have also been prescribed an antibacterial mouthwash, use this as prescribed. Return to the emergency department if you develop worsening pain, swelling, difficulty swallowing, difficulty breathing, fever, or any other concerning symptoms. Call or visit any of the clinics below to establish care with a dentist: [facility] [address] [place], [place] [id number] [address], [id number] Ruddy Abel [address] [place] [address] [facility] [address] [facility] [address] [place] [address] [facility] [address] [place] [address] [place] [address] [place] [address] Prescriptions: New morphine 15 mg tablet 15 mg PO Q8H PRN (Reason: severe pain (scale score 7-10)) Qty: 9 0RF Rx Instructions: Partial Fill upon patient request. chlorhexidine gluconate 0.12 % mouthwash 15 ml buccal BID Qty: 1893 0RF No Action ketorolac 10 mg tablet 10 mg PO TID PRN (Reason: pain) 5 Days Qty: 15 0RF doxycycline hyclate 100 mg capsule 100 mg PO BID 10 Days Qty: 20 0RF cephalexin 500 mg tablet 500 mg PO Q6H 10 Days Qty: 40 0RF morphine 15 mg tablet 15 mg PO Q6H PRN (Reason: pain) 5 Days Qty: 10 0RF Rx Instructions: Partial Fill upon patient request. amoxicillin-pot clavulanate 875-125 mg tablet 1 tab PO BID Qty: 20 0RF oxycodone 5 mg tablet 5 mg PO Q6H PRN (Reason: pain) Qty: 10 0RF Rx Instructions: Partial Fill upon patient request. Print Language: Prydeinig
[2024-08-23 08:26] VITALS: BP 121/71; PULSE 59; RESP 14; TEMP 36.5; O2SAT 98
== END 2024-08-23 08:36 | disposition home or self-care (01) ==
PROVIDERS: Emergency Provider Emergency Medicine
DX: K08.89 Other specified disorders of teeth and supporting structures (principal)
CPT/HCPCS: 99283; 99284

== ENCOUNTER 2024-10-21 22:35 | Emergency (ER) | payer MEDICAID, SELFPAY ==
--- NOTE | ~2024-10-21 | XR_ITS ---
CLINICAL HISTORY: pain s p trauma 3 views left foot Comparison: None provided Findings: There is no fracture or dislocation. Joint spaces appear normal. There is no radiopaque foreign body. Impression: Unremarkable left foot radiographs. This document has been electronically signed by: Fernando Burgess MD on 10/22/2024 00:12:47
--- NOTE | ~2024-10-21 | XR_ITS ---
CLINICAL HISTORY: pain s p trauma 3 views left ankle Comparison: None provided Findings: There appears to be mild medial soft tissue swelling. There is no fracture or dislocation. Joint spaces appear normal. Impression: No osseous abnormality. This document has been electronically signed by: Fernando Burgess MD on 10/22/2024 00:12:28
[2024-10-21 22:47] VITALS: BP 110/66; PULSE 90; RESP 18; TEMP 36.9; O2SAT 99; BMI 22.0
[2024-10-22 00:17] VITALS: BP 104/59; PULSE 57; RESP 18; O2SAT 96
--- NOTE | 2024-10-22 00:21 | PC.NURSE ---
pt resting in bed, no sign of distress, awaiting xray results.
--- NOTE | 2024-10-22 00:51 | ED_ITS ---
HPI - Extremity Injury (Lower) General Chief Complaint: Extremity Injury, Lower Stated Complaint: work injury, L ankle Time Seen by Provider: 10/22/24 00:47 Source: patient Mode of arrival: ambulatory Limitations: no limitations History of Present Illness ED Provider: Dr. Marisa Kirkland HPI Narrative: Patient comes to the emergency room complaining of left-sided ankle pain. Almost 2 weeks ago, patient states that he was at work and his left ankle was slammed by a Pallet. Patient states that it has been hurting since then. Patient able to bear weight. Denies being on blood thinners, denies any other injuries. Patient is not sure if he is up-to-date with his Tdap Related Data Previous Rx's ?Medication ?Instructions ?Recorded ketorolac 10 mg tablet 10 mg PO TID PRN pain 5 days #15 09/09/23 tabs cephalexin 500 mg tablet 500 mg PO Q6H 10 days #40 ta bs 09/11/23 doxycycline hyclate 100 mg capsule 100 mg PO BID 10 da ys #20 caps 09/11/23 morphine 15 mg immediate release 15 mg PO Q6H PRN pain 5 days #10 09/11/23 tablet tabs amoxicillin 875 mg-potassium 1 tab PO BID #20 tabs 05/03 clavulanate 125 mg tablet oxycodone 5 mg tablet 5 mg PO Q6H PRN pain #10 tab s 08/08/24 chlorhexidine gluconate 0.12 % 15 ml buccal BID #1,893 mL 08/23/24 mouthwash morphine 15 mg immediate release 15 mg PO Q8H PRN sagrario re pain 08/23/24 tablet (scale score 7-10) #9 tabs Allergies Allergy/AdvReac Type Severity Reaction Status Date / Time No Known Allergies (No Known Allergy Verified 10/21/24 22:50 Allergies*) Review of Systems Review of Systems: Constitutional : No Weight loss, No Fever, No Chills, No Night Sweats, No Fatigue, No Malaise ENT/Mouth : No Hearing loss, No Ear Pain, No Nasal Congestion, No Sinus Pain, No Hoarseness, No sore throat, No Rhinorrhea, No Swallowing Difficulty Eyes: No Eye Pain, No Swelling, No Redness, No Foreign Body, No Discharge, No Vision Changes Cardiovascular : No Chest Pain, No SOB, No Dyspnea on Exertion, No Orthopnea, No Edema, No Palpitations Respiratory : No Cough, No Sputum, No Wheezing, No Smoke Exposure, No Dyspnea Gastrointestinal : No Nausea, No Vomiting, No Diarrhea, No Constipation, No abdominal Pain, No Hematochezia, No Melena Genitourinary : no irregular bleeding, No Dysuria, No Urinary Frequency, No Hematuria, No Urinary Incontinence, No Urgency, No Flank Pain, No Urinary Flow Changes, No Hesitancy Musculoskeletal : Complaining of left ankle pain, No Myalgias, No Joint Swelling Skin : No Skin Lesions, No rash Neuro : No Weakness, No Numbness, No Paresthesias, No Loss of Consciousness, No Dizziness, No Headache Psych : No Anxiety/Panic, No Depression, No SI/HI/AH/VH, No Social Issues, Heme/Lymph: No Bruising, No Bleeding,No Lymphadenopathy Endocrine : No Polyuria, No Polydipsia, No Temperature Intolerance [facility] Social History Social History Alcohol intake: current Alcohol intake frequency: holidays/special occasions only Smoked in Last 30 Days: No Use of substances other than those prescribed or required for medical reasons: No Substance Use Type: Marijuana Advance Directives: No Physical Exam Exam: Exam: Appearance: Alert. Oriented X3. No acute distress. Eyes: Pupils equal, round and reactive to light. ENT: Pharynx normal. Neck: Normal inspection. Neck supple. No lymph nodes noted. No crepitus CVS: Normal heart rate and rhythm. Pulses normal. Normal S1 and S2 Respiratory: No respiratory distress. Breath sounds normal. No Wheezing. No rales Abdomen: Soft and nontender. No rigidity. No distention. Skin: Skin warm and dry. Normal skin color. Normal skin turgor. There is a small healing eschar on the medial aspect of the left ankle, no cellulitis Extremities: No lower extremity edema. No Lacerations. No Rash. Patient able to flex and extend the ankle with normal range of motion, able to bear weight Neuro: Oriented X 3. No motor deficit. No sensory deficit. Moving all extremities. No slurred speech. CN 2 through 12 grossly intact Psych: calm, cooperative, normal affect Vital Signs: Vital Signs: Last Vital Signs Temp 98.5 F 10/21/24 22:47 Pulse 57 10/22/24 00:17 Resp 18 10/22/24 00:17 BP 104/59 L 10/22/24 00:17 Pulse Ox 96 10/22/24 00:17 O2 Del Method Room Air 10/22/24 00:17 BMI result Body Mass Index 22.0 Medical Decision Making Medical Decision Making MDM Narrative: X-rays did not show any acute abnormality. Patient states that he is not sure if he is up-to-date with his Tdap. Patient does not want a booster at this time. I discussed the x-ray with the patient, no acute finding. Overall, patient has a normal steady gait. Patient will need with to follow-up with work connections Independent Interpretation I performed an independent interpretation of an: Plain X-Ray Radiology Impression Discussion of test interpretation with radiology: I have reviewed the radiologist's reading. Radiologist Impression: There appears to be mild medial soft tissue swelling. There is no fracture or dislocation. Joint spaces appear normal. Impression: No osseous abnormality Discharge Plan Discharge Clinical Impression: Ankle contusion Patient Disposition: Home, Self-Care Instructions: Contusion in Adults (ED) Additional Instructions: Please follow-up with your primary care physician tomorrow. If you have any worsening or new symptoms, please return to the emergency room or call 911 Prescriptions: No Action ketorolac 10 mg tablet 10 mg PO TID PRN (Reason: pain) 5 Days Qty: 15 0RF doxycycline hyclate 100 mg capsule 100 mg PO BID 10 Days Qty: 20 0RF cephalexin 500 mg tablet 500 mg PO Q6H 10 Days Qty: 40 0RF morphine 15 mg tablet 15 mg PO Q6H PRN (Reason: pain) 5 Days Qty: 10 0RF Rx Instructions: Partial Fill upon patient request. amoxicillin-pot clavulanate 875-125 mg tablet 1 tab PO BID Qty: 20 0RF oxycodone 5 mg tablet 5 mg PO Q6H PRN (Reason: pain) Qty: 10 0RF Rx Instructions: Partial Fill upon patient request. morphine 15 mg tablet 15 mg PO Q8H PRN (Reason: severe pain (scale score 7-10)) Qty: 9 0RF Rx Instructions: Partial Fill upon patient request. chlorhexidine gluconate 0.12 % mouthwash 15 ml buccal BID Qty: 1893 0RF Print Language: Brazilian
--- NOTE | 2024-10-22 01:05 | PC.NURSE ---
reviewed discharge instructions with pt, pt verbalized understanding, no sign of distress. pt able to ambulate with a steady gait.
[2024-10-22 01:15] VITALS: BP 104/59; PULSE 57; RESP 18; TEMP 36.1; O2SAT 96
== END 2024-10-22 01:15 | disposition home or self-care (01) ==
PROVIDERS: Emergency Provider Emergency Medicine
DX: S90.02XA Contusion of left ankle, initial encounter (principal); M25.572 Pain in left ankle and joints of left foot; Y29.XXXA Contact with blunt object, undetermined intent, initial encounter; Y93.9 Activity, unspecified; Y92.9 Unspecified place or not applicable; Y99.0 Civilian activity done for income or pay
CPT/HCPCS: 73600; 73620; 99283; 99284

== ENCOUNTER → 2024-10-21 22:41 | Outpatient (BNV) | payer MEDICAID, SELFPAY | PROVIDERS: Emergency Provider Emergency Medicine; Visit Provider Radiology Diagnostic Radiology | DX: M25.572 Pain in left ankle and joints of left foot (principal); M79.672 Pain in left foot; W23.1XXA Caught, crushed, jammed, or pinched between stationary objects, initial encounter | CPT/HCPCS: 73600; 73620 ==